=== PATIENT | female | born 1960 | race Hispanic/Latino ===

== ENCOUNTER 2017-03-02 12:41 | Emergency (ER) | payer OTHER ==
[2017-03-02 12:50] VITALS: BP 118/71; PULSE 78; RESP 18; TEMP 98.7; O2SAT 100
[2017-03-02] MEDS ORDERED: Amoxicillin-Clav 875-125 mg Tab PO STA (13:08)
[2017-03-02] MEDS ORDERED: Amoxicillin-Clav 875-125 mg Tab PO ONE (13:14)
--- NOTE | 2017-03-02 13:15 | C.PDOC ---
Time Seen by Provider: 03/02/17 12:53 Chief Complaint (Nursing): Dental Pain History Per: Patient Onset/Duration Of Symptoms: Days, Worse Since (this morning) Current Symptoms Are (Timing): Still Present Severity: Moderate Dental/Oral: 1 - pain Quality: Positive for: "Pain" Additional History Per: Prior Records Past Medical History Reviewed: Historical Data, Nursing Documentation, Vital Signs Vital Signs: Last Vital Signs Temp 98.7 F 03/02/17 12:46 Pulse 78 03/02/17 12:46 Resp 18 03/02/17 12:46 BP 118/71 03/02/17 12:46 Pulse Ox 100 03/02/17 13:17 - Medical History PMH: Anxiety, Depression, Fibromyalgia Other Surgeries: Myomectomy Family History: States: Unknown Family Hx - Social History Hx Tobacco Use: Yes (1/2 pack a day) Hx Alcohol Use: No Hx Substance Use: No - Immunization History Hx Tetanus Toxoid Vaccination: No Hx Influenza Vaccination: No Hx Pneumococcal Vaccination: No Review Of Systems Except As Marked, All Systems Reviewed And Found Negative. Constitutional: Negative for: Fever, Weakness Eyes: Negative for: Pain, Vision Change ENT: Negative for: Throat Swelling Cardiovascular: Negative for: Chest Pain Respiratory: Negative for: Shortness of Breath Gastrointestinal: Positive for: Vomiting (x1 this morning). Negative for: Abdominal Pain Musculoskeletal: Positive for: Neck Pain (chronic, due to herniated discs). Negative for: Arm Pain Skin: Negative for: Rash Neurological: Positive for: Numbness (tingling left side of jaw), Headache. Negative for: Weakness, Incoordination, Change in Speech, Confusion, Seizures, Altered Mental Status Physical Exam - Physical Exam Appears: Non-toxic, No Acute Distress Skin: Normal Color, Warm, Dry, No Rash Head: Atraumatic, Normacephalic Eye(s): bilateral: Normal Inspection, PERRL, EOMI Oral Mucosa: Moist, No Drooling, No Trismus Teeth: Caries, Tender To Palpation (left lower molar) Throat: Normal Neck: Normal ROM, No Midline Cervical Tenderness, No Step Off Deformity, Supple Lymphatic: No Adenopathy Cardiovascular: Rhythm Regular Respiratory: Normal Breath Sounds, No Accessory Muscle Use Gastrointestinal/Abdominal: Soft, No Tenderness Extremity: Normal ROM Neurological/Psych: Oriented x3, Normal Speech, Normal Cognition, Normal Cranial Nerves, No Cerebellar Signs, Normal Motor, Normal Sensation Gait: Steady ED Course And Treatment O2 Sat by Pulse Oximetry: 100 Pulse Ox Interpretation: Normal Reassessment Condition: Improved Disposition Counseled Patient/Family Regarding: Studies Performed, Diagnosis, Need For Followup, Rx Given - Disposition Referrals: Chaya Dickinson DMD [Staff Provider] - Josseline Baker MD [Staff Provider] - Disposition: HOME/ ROUTINE Disposition Time: 13:52 Condition: IMPROVED Additional Instructions: Follow up with your doctor and with a dentist. Return to the ER if you develop redness, swelling, fever, pus drainage, weakness, worsening of symptoms or if you have any other concerns. Prescriptions: Amoxicillin/Clavulanate [Augmentin 875 MG-125 MG] 1 tab PO BID #14 tab Naproxen [Naprosyn Tab] 375 mg PO BID PRN #20 tab PRN Reason: Pain, Moderate (4-7) Instructions: Toothache (ED) - Clinical Impression Clinical Impression: Toothache
== END 2017-03-02 13:59 | disposition home or self-care (01) ==
LOC: C.ER 12:41
DX: K08.89 Other specified disorders of teeth and supporting structures (principal)
CPT/HCPCS: 82948; 96372; 99285; J1885